=== PATIENT | male | born 1995 | race Caucasian/White ===

== ENCOUNTER 2025-05-14 17:29 | Emergency (ER) | payer SELFPAY ==
--- OUTSIDE RECORDS SUMMARY | 2023-07-24 09:36 | XMS_ITS | Continuity of Care Document ---
Author Organization [facility] Address [address] [facility] [place] [address] Phone Care Team Providers Care [place] Expert Name Role Phone Ronald Mcwilliams Unavailable Unavailab le Allergies, Adverse Reactions, Alerts Substance Reaction Status Criticality mold Nasal congestionAbdominal discomfort Acti ve No Information Medications Medication Instructions Dosage Effective Dates (start - stop) Status Comments omeprazole 20 mg capsule,delayed release take 1 capsule by oral route every day 30 minutes to 1 hour before a meal 20 MG - Active Singulair 10 mg tablet take 1 tablet by oral route every day in the evening as needed for allergy symptoms 10 MG - Active dicyclomine 20 mg tablet take 2 tablet by oral route 4 times every day 40 MG - Active trazodone 50 mg tablet take 1 tablet by oral route every day at bedtime as needed 50 MG - Active Fetzima 80 mg capsule,extended release take 1 capsule by oral route every day at approximately the same time each day 80 MG - Active Ritalin 10 mg tablet take 1 tablet by or al route 2 times every day 10 MG - Active Procedures Procedure Date Panoramic Film Extract; Erupted Th/exposted Rt 023 Extract; Erupted Th/exposted Rt 023 OFFICE/OUTPATIENT VISIT, EST ROUTINE VENIPUNCTURE OFFICE/OUTPATIENT VISIT, EST OFFICE/OUTPATIENT VISIT, EST Alcohol/drug screening OFFICE/OUTPATIENT VISIT, EST Feb-23-2023 Intraoral-complete Series (bw) Oral Hygiene Instruction Comp Oral Eval New/estab Patient 2022 Alcohol/drug screening ROUTINE VENIPUNCTURE OFFICE/OUTPATIENT VISIT, [facility] IMMUNIZATION ADMIN FLU VAC NO PRSV 4 HUY 3 YRS+ Advance Directives Directive Yes / No Effective Date File Name No Information Encounters Encounter Description Practice Location Reason(s) For Visit Diagnoses Date Provider Providers Copied on Encounter [facility], [address] [place] [address], [id number] , [place] tel:[phone] ECFS No Information 3 Justin Cardenas. [address] [place] [address], [id number], [place]. tel:[phone] [facility], [address] [place] [address], [id number] , [place] tel:[phone] Dental Clinic ext/con (chief complaint) Encounter for screening for dental disorders 3 Osmany Bryant. [address] [place] [address], [id number], [place]. tel:[phone] OFFICE/OUTPA TIENT VISIT, [facility], [address] [place] [address], [id number] , [place] tel:[phone] ECFS stomach issues (chief complaint) Body mass index [BMI] 25.0-25.9, adultAllergic rhinitis, unspecified seasonality, unspecified triggerGeneralize d abdominal pain 3 Justin Cardenas. [address] [place] [address], [id number], [place]. tel:[phone] OFFICE/OUTPA TIENT VISIT, [facility], [address] [place] [address], [id number] , [place] tel:[phone] [facility] f/u Abd pain (chief complaint) Body mass index [BMI] 25.0-25.9, adultIrritable bowel syndrome with diarrheaAllergic rhinitis, unspecified seasonality, unspecified trigger 3 Justin Cardenas. [address] [place], [place], [id number], [place]. tel:[phone] [facility], [address] [place] [address], [id number] , [place] tel: [phone] [facility] Generalized abdominal painUnintentional weight lossFrequent stools 3 Justin Cardenas. [address] [place], [place], [id number], [place]. [phone] [facility], [address] [place] [address], [id number] , [place] tel: [phone] [facility] Generalized abdominal painFrequent stoolsUnintention al weight loss 3 Justin Cardenas. [address] [place] [address], [id number], [place]. [phone] OFFICE/OUTPA TIENT VISIT, [facility], [address] [place] [address], [id number] , [place] tel: [phone] [facility] f/u abd pain (chief complaint) Urine ketonesBody mass index [BMI] 25.0-25.9, adultUnintentiona l weight lossGeneralized abdominal painSkin rashFrequent stools 3 Justin Cardenas. [address] [place] [address], [id number], [place]. [phone] OFFICE/OUTPA TIENT VISIT, [facility], [address] [place] [address], [id number] , [place] tel:[phone] [facility] F/U (chief complaint) Irritable bowel syndrome (chief complaint) Encounter for screening examination for other mental health and behavioral disordersBody mass index [BMI] 27.0-27.9, adultIrritable bowel syndrome with diarrhea 3 Justin Cardenas. [address] [place] [address], [id number], [place]. tel:[phone] [facility], [address] [place] [address], [id number] , [place] [phone] Dental Clinic DN (chief complaint) Encounter for screening for dental disorders 3 Bertrand Mcleod. . tel:[phone] OFFICE/OUTPA TIENT VISIT, EST [facility], [address] [place] [address], [id number] , [place] tel:[phone] [facility] Est Care (chief complaint) Dental (chief complaint) Abdominal pain (chief complaint) Encounter for screening examination for other mental health and behavioral disordersBody mass index [BMI] 27.0-27.9, adultGeneralized abdominal painFrequent stoolsNeed for dental careUnintentional weight loss 3 Justin Cardenas. [address] [place] [address], [id number], [place]. tel:[phone] [facility], [address] [place] [address], [id number] , [place] tel:[phone] [facility] No Information 7 Carmenza Samuel. [address] [place] [address], [id number], [place]. tel:[phone] Family History Family Member Type Diagnosis Age At Onset No Information Immunizations Vaccine Date Status Comments Influenza virus vaccine, injectable, quadrivalent, split virus, preservative free, 3 years or older Fluarix, Flulaval or Fluzone Quad administered Source: New Immuniza tion Record Payers Payer name Insurance type Covered alliance party ID Authoriza tion(s) D [employer] [facility] [id number] Medicaid Wrap - [facility] [place] [id number] Social History Type Description Quantity Date Captured Comments Alcohol Use Details Unknown Caffeine Use Details Unknown Tobacco Use Status No Information Smoking Status No Information Sex Male Sexual Orientation Straight or heterosexual Gender Identity Male Chief Complaint And Reason For Visit No Information Reason For Referral Reason For Referral No Information Plan Of Treatment Date Type Action Status Goal Hepatitis C screening. Due o n due Goal Unhealthy drug use screening . Due on due Goal RLP. Due on due Goal Tdap. Due on due Goal Depression screening. Due on due Goal Tdap Vaccine. Due on 2022 due Goal Hep A. Due on du e Goal PRAPARE ASSESSMENT. Due on due Goal Influenza vaccine. Due on due Goal Influenza vaccine. Due on due Goal RLP. Due on due Goal Depression screening. Due on due Goal Tdap Vaccine. Due on 2022 due Goal PRAPARE ASSESSMENT. Due on due Goal Tdap. Due on due Goal Tdap Vaccine. Due on 2022 due Goal Depression screening. Due on due Goal Influenza vaccine. Due on due Goal Tdap. Due on due Goal PRAPARE ASSESSMENT. Due on due Goal RLP. Due on due Goal Dietary management education , guidance, and counseling completed Goal Tdap Vaccine. Due on 2022 due Goal PRAPARE ASSESSMENT. Due on due Goal Influenza vaccine. Due on Wi due Goal Depression screening. Due on due Goal RLP. Due on due Goal Tdap. Due on due Goal Dietary management education , guidance, and counseling completed Goal Influenza vaccine. Due on Ap due Goal Tdap Vaccine. Due on 2022 due Goal Depression screening. Due on due Goal RLP. Due on due Goal PRAPARE ASSESSMENT. Due on A due Goal Hep A. Due on du e Goal Tdap. Due on due Goal Hep A. Due on du e Goal Tdap. Due on due Goal Tdap Vaccine. Due on 2022 due Goal RLP. Due on due Goal Influenza vaccine. Due on due Goal PRAPARE ASSESSMENT. Due on A due Goal Depression screening. Due on due Goal PRAPARE ASSESSMENT. Due on due Goal Depression screening. Due on due Goal RLP. Due on due Goal Tdap Vaccine. Due on 2022 due Goal Influenza vaccine. Due on Wi due Goal Tdap. Due on due Goal Dietary management education , guidance, and counseling completed Goal Dietary management education , guidance, and counseling completed Goal Tdap Vaccine. Due on 2022 due Goal RLP. Due on due Goal Influenza vaccine. Due on due Goal PRAPARE ASSESSMENT. Due on due Goal Tdap. Due on due Goal Depression screening. Due on due Goal Lifestyle education regardin g diet completed Goal Tdap Vaccine. Due on 2022 due Goal Tdap. Due on due Goal Depression screening. Due on due Goal Influenza vaccine. Due on due Goal RLP. Due on due Goal PRAPARE ASSESSMENT. Due on due Goal Hep A. Due on du e Goal Tdap Vaccine. Due on 2022 due Goal Tdap. Due on due Goal Depression screening. Due on due Goal RLP. Due on due Goal Influenza vaccine. Due on due Goal PRAPARE ASSESSMENT. Due on due Goal Lifestyle education regardin g diet completed Referral Ordered: Referrals: Gastroenterology. Evaluate and treat Appointment date/timeframe: 03/19/2023 ordered Referral Ordered: CT Pelvis W/Dye ordered Referral Ordered: CT Abdomen W/Dye ordered Referral Ordered: CT Abdomen W/O & W/Dye ordered Referral Ordered: Referrals: Dentistry. Evaluate and treat ordered History Of Present Illness Encounter Date Complaint History Of [place] nt Illness ext/con stomach issues Patient here for stomach issues. Patient hoses down steps with mold and it his messing with his allergies and then upsetting his stomach. Patient is requesting a note to not work in that area until issues is fix. No other issues at this time.Lesley Carrera. HPI reviewed and accurate. Ernesto CAHSLabs obtained from left anticub after one attempt.Lesley Carrera. f/u Abd pain Presents for f/u abd pain. States he has an appt with GI on 03/19/23. States he needs a refill on his Singulair and a note for work stating that he has stomach problems . Susan Kebede RNNotes continues to improve slightly on abdominal issues on dicyclomine and omeprazole, no longer experiencing reflux. Scheduled to follow up with stick inserter. Continues with poor dietary intake and weight loss, eats 1-2 meals per day. No supplementation for calories at home. Ernesto CASH f/u abd pain Presents for f/u abd pain. Pt reports abd pain x 4 days, denies vomiting, diarrhea. Was stared on Ritalin by psychiatry. Pt was given specimen containers for UA and stool specimen. Susan Kebede RNContinues with abdominal pain and nausea in despite use of dicyclomine, notes diarrhea has improved. Review of 05-17-2020 Dr. Escobedo EGD and colonoscopy noted normal EGD with biopsy, small internal hemorrhoids with biopsy on colonoscopy, biopsy results not available, continues to lose weight. Patient open to 2nd opinion with different stick inserter. Ernesto CASH F/U Patient is here for F/U on abdominal pain. Patient states the pain has remained the same. States the pain is a sharp pain both above and below the umbilicus. States OTC medications do not help the pain. Denies nausea or vomiting, does experience diarrhea at times. Patient notices red sauce exacerbates the abdominal pain, as well as acid reflux. Denies noticing any other differences. Denies any other concerns. Was placed on Fetzima [address] Guy for depression, struggles with anxiety. Vapes daily. Smokes marijuana.//Enoch SMALLS. Irritable bowel syndrome Onset: gradual. Patient description is bloating, cramping and flatulence. It occurs daily. The problem is with no change. Aggravated by -Food: certain foods. Relieving factors include defecation and not eating. Associated symptoms include abdominal pain, bloating, change in bowel habits, loose stools, stool urgency and weight loss. Pertinent negatives include abdominal distention, altered stool passage, change in stool caliber, fever, mucus in stool, nausea and vomiting. Additional information: diarrhea after stools with red sauce. Ernesto CASH MAGALIS BLANCAS Abdominal pain Onset: 2 Years. The severity of the problem is moderate. The problem has not changed. The symptoms are recurring. The location is midline, left upper quadrant and left lower quadrant. The quality of the pain is achy. These symptoms occur after meals. These symptoms do not occur after bowel movement, on urination, with recent antibiotic use and after recent foreign travel. Aggravating factors include food. The patient denies relieving factors. Associated symptoms include nausea and weight loss. Pertinent negatives include back pain, bloating, blood in stool, change in appetite, constipation, diarrhea, dizziness, dyspnea, fever, flank pain, heartburn, hematuria, rash and vomiting. Additional information: [place] CASH. Dental Scheduled Dental New on 09/28/2022//Pito Yip RN Est Care Pt is here to [facility]. Pt has been having stomach issues for the last two years. He states that starting 2 years ago anytime he would eat, he would vomit or have bowel movements with blood. He states the blood has cleared up but he is still having the issue with vomiting and having bowel movements after eating. Pt states he saw a GI doctor but is unsure who the doctor was. He states that they did do an EGD and a Colonoscopy at [facility] and both of those were normal. He states he has lost significant weight over the last year, stating he was in the 280s and last he checked he was in the 140s. Pt admits to intermittent abdominal pain. He states that the pain is more present when he eats and his stomach is full. Pt also admits to depression and goes [facility] [employer] [facility]. Pt vapes with nicotine daily and smokes marijuana daily. Pt denies alcohol use. //SIMIN JonesQ9- 10//SERINA Jones Functional Status Date Functional Assessmen t No Information Instructions Date Instruction Additional Infor mation 1. amylase and lipas e2. Will follow up as needed. Related to Generalized abdominal pain 1 Use plastic covers for pillows, mattresses, and box springs.2 Avoid overstuffed furniture and down-filled bedding or pillows.3 Remove stuffed animals from the bed.4 Avoid sleeping on a bottom bunk.5 Wash your bedding every week in hot water, hotter than 130 degrees F.6 Do not allow smoking in your house.7 Wear a mask and gloves when cleaning, vacuuming, or painting to limit dust and chemical exposure.8 Vacuum twice a week.9 FOLLOW UP: as OTC MEDICATIONS FLUTICASONE, LORATIDINE, CERTIRIZINE, FEXOFENADINE may be used for symptoms if not contraindicated.11 note provided to avoid work area with mold trigger. Related to Allergic rhinitis, unspecified seasonality, unspecified trigger Giving encouragement to exercise Related to Body mass index [BMI] 25.0-25.9, adult Dietary management e ducation, guidance, and counseling Related to Body mass index [BMI] 25.0-25.9, adult 1 Use plastic covers for pillows, mattresses, and box springs.2 Avoid overstuffed furniture and down-filled bedding or pillows.3 Remove stuffed animals from the bed.4 Avoid sleeping on a bottom bunk.5 Wash your bedding every week in hot water, hotter than 130 degrees F.6 Do not allow smoking in your house.7 Wear a mask and gloves when cleaning, vacuuming, or painting to limit dust and chemical exposure.8 Vacuum twice a week.9 FOLLOW UP: 6 [id number] START SINGULAIR Related to Allergic rhinitis, unspecified seasonality, unspecified trigger 1. Medications as pr escribed2. push fluids3. bland diet, progress as toleratedsupplement with protein shakes in between meals, do not use as a supplementation4. FOLLOW UP: 3 months- SOONER FOR WEIGHT LOSS BELOW 130LBSMUST KEEP APPT WITH GASTRO SPECIALIST5. ER for worsening of symptoms Related to Irritable bowel syndrome with diarrhea Giving encouragement to exercise Related to Body mass index [BMI] 25.0-25.9, adult Dietary management e ducation, guidance, and counseling Related to Body mass index [BMI] 25.0-25.9, adult 1. referral to gastr o placed If you have not been contacted per specialist office to which you referred to in 2 weeks please contact the [facility] at [phone] and advise triage nurse. Related to Generalized abdominal pain 1. Avoid nicotine an d caffeine2. Do not eat 2 hours prior to bedtime3. Avoid large meals4. Avoid spicy or greasy foods, avoid other foods which may cause reflux5. OMEPRAZOLE 20mg dailyDICYCLOMINE 40MG QID6. Mylanta, Maalox, or GILBERT as needed for immediate relief7. CT ABD/PELVIS ORDERED8. UA and fecal calprotectin pending FOLLOW UP: WILL DISCUSS AFTER CT ABD//PELVIS REVIEWED Related to Generalized abdominal pain 1. possible allergen , follow up with derm, call to schedule Related to Skin rash Dietary management e ducation, guidance, and counseling Related to Body mass index [BMI] 25.0-25.9, adult Giving encouragement to exercise Related to Body mass index [BMI] 25.0-25.9, adult Dietary management e ducation, guidance, and counseling Related to Body mass index [BMI] 25.0-25.9, adult Giving encouragement to exercise Related to Body mass index [BMI] 25.0-25.9, adult 1. dyccylomine as or dered2. avoid offending foods3. ER for fever or severe pain4. Follow up 1 month Related to Irritable bowel syndrome with diarrhea Lifestyle education regarding di et Related to Body mass index [BMI] 27.0-27.9, adult Giving encouragement to exercise Related to Body mass index [BMI] 27.0-27.9, adult 1. CBC, CMP, bowel d isorder cascade, thyroid screen, UA2. Records request [facility]3. smaller more frequent meals4. stop marijuana use5. Follow up 2 weeks Related to Generalized abdominal pain 1. Scheduled with dentist today. Related to Need for dental care Lifestyle education regarding di et Related to Body mass index [BMI] 27.0-27.9, adult Giving encouragement to exercise Related to Body mass index [BMI] 27.0-27.9, adult Assessments Type Assessment Date No Information Patient Care Teams Name Effective Dates (start - stop) Status Members No Information
[2025-05-14 17:36] VITALS: BP 122/75; PULSE 68; TEMP 36.9; O2SAT 98; BMI 32.9
--- NOTE | 2025-05-14 18:00 | CT_ITS ---
[facility] [place] [id number] Patient Name: ASHLEY BAJWA MRN: [id number] date: 1995 Sex: M Assigned Patient Location: ER Current Patient Location: ED.MAIN Accession/Order Number: [id number] Exam Date: 05/14/2025 18:34 Report Date: 05/14/2025 20:16 At the request of: KIRAN VÁSQUEZ Procedure: CT abdomen pelvis w con CT ABDOMEN AND PELVIS WITH INTRAVENOUS CONTRAST: CLINICAL HISTORY: LLQ pain, rectal bleeding COMPARISON: None TECHNIQUE: Spiral images were obtained through the abdomen and pelvis following the administration of intravenous contrast. This CT exam was performed using one or more following dose reduction techniques: Automated exposure control, adjustment of the mA and/or kV according to patient size, or use of iterative reconstruction technique. FINDINGS: Lung Bases: [No focal opacity] Organs:Liver, spleen, adrenals, kidneys, and pancreas are unremarkable. Gallbladder is contracted.[ GI: Mild retained stool throughout the colon. No bowel obstruction. Appendix unremarkable.[ Pelvis:[Bladder and prostate unremarkable. Tiny fat-containing left inguinal hernia.] Peritoneum/Retroperitoneum:Minimal degenerative changes L5-S1. No free air or free fluid. Aorta normal caliber.[ Abd wall/Bones:No suspicious osseous lesion[ CT/CT abdomen pelvis w con IMPRESSION: Negative acute inflammatory process or bowel obstruction Impression dictated by: Jerardo Zhou M.D. 05/14/2025 8:16 PM Dictation Location: [place] [address] Electronically authenticated by: [id number] Date: 05/14/2025 20:16
[2025-05-14 18:27] LABS: Hematocrit 42.3 % (42.0-54.0); Hemoglobin 14.4 g/dL (14.0-18.0); Immature Granulocytes Abs Auto 0.00 10^3/uL (0.00-0.03); Immature Granulocytes Pct Auto 0.0 % (0.0-0.5); Lymphocytes Absolute Auto 1.5 10^3/uL (1.2-3.8); Mean Corpuscular HGB Conc 34.0 g/dL (29.9-35.2); Mean Corpuscular Hemoglobin 30.4 pg (25.9-34.0); Mean Corpuscular Volume 89.2 fL (80.0-94.0); Platelet Count 182 10^3/uL (150-450); Red Blood Count 4.74 10^6/uL (4.70-6.10); White Blood Count 5.9 10^3/uL (4.0-11.0)
[2025-05-14 18:42] LABS: Alanine Aminotransferase 21 U/L (16-63); Albumin Globulin Ratio 1.1; Albumin Level 4.1 g/dL (3.4-5.0); Alkaline Phosphatase 77 U/L (46-116); Anion Gap 12.2; Aspartate Amino Transferase 13 U/L (15-37); Blood Urea Nitrogen 10.0 mg/dL (7.0-18.0); Calcium 9.2 mg/dL (8.5-10.1); Carbon Dioxide 28.4 mmol/L (21.0-32.0); Chloride 102 mmol/L (98-107); Estimated GFR (African America >60 (>=60 mL/min/1.73m^2); Estimated GFR (Non-African Ame >60 (>=60 mL/min/1.73m^2); Globulin 3.9 g/dL; Glucose 107 mg/dL (74-106); Potassium 3.6 mmol/L (3.5-5.1); Sodium 139 mmol/L (136-145); Total Protein 8.0 g/dL (6.4-8.2)
[2025-05-14 19:14] VITALS: BP 131/76; PULSE 63; O2SAT 97
--- NOTE | 2025-05-14 20:16 | ED_ITS ---
HPI HPI - General Adult General Chief complaint: GI Bleed Stated complaint: Rectal Bleeding Time Seen by Provider: 05/14/25 17:34 Source: patient Mode of arrival: walk-in History of Present Illness HPI narrative: 30-year-old male presents to the ED with bright red blood per rectum for the past 24 hours. He reports that his other bowel movements have been normal. He is experiencing left lower quadrant abdominal cramping and tenderness. He has had similar symptoms in the past and has undergone prior colonoscopy, which was reportedly normal. He denies fever, chills, nausea, vomiting, melena, dizziness, or lightheadedness. No recent travel, antibiotic use, or sick contacts. Related Data Previous Rx's ?Medication ?Instructions ?Recorded hydrocortisone-pramoxine 2.5 %-1 % 1 applic IN TID 7 d ays #30 grams 05/14/25 rectal cream (Analpram-HC) Allergies Allergy/AdvReac Type Severity Reaction Status Date / Time No Known Drug Allergies Allergy Verified 05/14/25 17:41 PFSH PFSH Social History Little interest or pleasure in doing things: not at all Feeling down, depressed, or hopeless: not at all Exam Narrative Exam Narrative: General: Alert, oriented, no acute distress. Vital Signs: BP 131/67, HR 63, RR 14, Temp 98.4 ?F, SpO? 97% RA. HEENT: Mucous membranes moist, no pallor noted. Cardiac: Regular rate and rhythm, no murmurs. Respiratory: Clear to auscultation bilaterally, normal effort. Abdomen: Soft, nondistended, tenderness to palpation LLQ, no rebound or guarding, no masses. Rectal: Chaperoned exam. Tender external hemorrhoid and fissure noted at approximately 11 o?clock position. No active bleeding. Fecal occult positive, likely from hemorrhoidal bleeding. Skin: Warm, well-perfused, no rash, no diaphoresis. Neuro: Alert and oriented ?3, no focal deficits. Constitutional Vital Signs, click to edit/add: Last Vital Signs Temp 98.4 F 05/14/25 17:36 Pulse 63 05/14/25 19:14 Resp 14 05/14/25 19:14 BP 131/76 05/14/25 19:14 Pulse Ox 97 05/14/25 19:14 O2 Del Method Room Air 05/14/25 19:14 Course Vital Signs Vital signs: Vital Signs Temperature 98.4 F 05/14/25 17:36 Pulse Rate 68 05/14/25 17:36 Respiratory Rate 18 05/14/25 17:36 Blood Pressure 122/75 05/14/25 17:36 Pulse Oximetry 98 05/14/25 17:36 Temperature 98.4 F 05/14/25 17:36 Pulse Rate 63 05/14/25 19:14 Respiratory Rate 14 05/14/25 19:14 Blood Pressure 131/76 05/14/25 19:14 Pulse Oximetry 97 05/14/25 19:14 Oxygen Delivery Method Room Air 05/14/25 19:14 Medical Decision Making MDM Narrative Medical decision making narrative: Patient is a 30-year-old male presenting with bright red rectal bleeding and left lower quadrant abdominal cramping. Exam notable for tender hemorrhoid and anal fissure, no active bleeding. He has a history of similar episodes with prior normal colonoscopies. Vital signs are stable and he is clinically well- appearing. Work-Up: * Labs: WBC 5.9, Hgb 14.4, Hct 42%, CMP unremarkable * Imaging: CT abdomen/pelvis ? negative for acute inflammatory process, obstruction, or other acute pathology * Rectal Exam: Tender external hemorrhoid and fissure at 11:00, no active bleeding; fecal occult positive Differential Diagnosis: * Hemorrhoids / Anal fissure ? most likely given tender external hemorrhoid and fissure, positive fecal occult, prior history * Diverticulosis / diverticulitis ? less likely; CT negative, no systemic symptoms * Colitis (infectious, IBD) ? less likely; no diarrhea, systemic symptoms, or CT findings * GI bleed from upper GI source ? unlikely; bright red blood per rectum without melena * Polyps or neoplasm ? low suspicion given prior normal colonoscopy, age <30 Assessment: Bright red rectal bleeding secondary to external hemorrhoid and anal fissure. Patient is hemodynamically stable with no evidence of acute intra-abdominal pathology or severe blood loss. Plan: * Conservative management with stool softeners, high-fiber diet, hydration, and sitz baths and analpram cream Rx * Symptomatic relief with topical therapy if needed * Close follow-up with primary care provider for re-evaluation and ongoing management * Return precautions for worsening bleeding, dizziness, syncope, or severe abdominal pain * * Medical Records Medical records reviewed: Yes I reviewed the patient's medical records Lab Data Lab results reviewed: Yes I reviewed the patient's lab results Labs: Lab Results 05/14/25 05/14/25 Range/Units 17:58 18:10 WBC 5.9 (4.0-11.0) 10^3/uL RBC 4.74 (4.70-6.10) 10^6/uL Hgb 14.4 (14.0-18.0) g/dL Hct 42.3 (42.0-54.0) % MCV 89.2 (80.0-94.0) fL MCH 30.4 (25.9-34.0) pg MCHC 34.0 (29.9-35.2) g/dL RDW 11.9 (11.0-15.0) % Plt Count 182 (150-450) 10^3/uL MPV 12.4 (9.5-13.5) fL Neut % (Auto) 63.4 (43.0-75.0) % Lymph % (Auto) 25.8 (20.5-60.0) % [place] % (Auto) 6.7 (1.7-12.0) % Eos % (Auto) 3.4 (0.9-7.0) % Baso % (Auto) 0.7 (0.2-2.0) % Neut # (Auto) 3.7 (1.4-6.5) 10^3/uL Lymph # (Auto) 1.5 (1.2-3.8) 10^3/uL [place] # (Auto) 0.4 (0.3-0.8) 10^3/uL Eos # (Auto) 0.2 (0.0-0.7) 10^3/uL Baso # (Auto) 0.0 (0.0-0.1) 10^3/uL Abs Immat Gran (auto) 0.00 (0.00-0.03) 10^3/uL Imm/Tot Granulo (auto) 0.0 (0.0-0.5) % Sodium 139 (136-145) mmol/L Potassium 3.6 (3.5-5.1) mmol/L Chloride 102 (98-107) mmol/L Carbon Dioxide 28.4 (21.0-32.0) mmol/L Anion Gap 12.2 BUN 10.0 (7.0-18.0) mg/dL Creatinine 0.88 (0.70-1.30) mg/dL Est GFR ( Amer) >60 (>=60 mL/min/1.73m^2) Est GFR (Non-Af Amer) >60 (>=60 mL/min/1.73m^2) BUN/Creatinine Ratio 11.4 Glucose 107 H (74-106) mg/dL Calcium 9.2 (8.5-10.1) mg/dL Total Bilirubin 0.4 (0.2-1.0) mg/dL AST 13 L (15-37) U/L ALT 21 (16-63) U/L Alkaline Phosphatase 77 (46-116) U/L Total Protein 8.0 (6.4-8.2) g/dL Albumin 4.1 (3.4-5.0) g/dL Globulin 3.9 g/dL Albumin/Globulin Ratio 1.1 Stool Occult Blood Positive A Imaging Data CT scan - abdomen: Attestation: I have reviewed the pertinent imaging results. Radiologist's impression: ITS Impressions Abdomen/Pelvis CT 05/14/25 18:00 IMPRESSION: Negative acute inflammatory process or bowel obstruction Impression dictated by: Jerardo Zhou M.D. 05/14/2025 8:16 PM Dictation Location: [place] [id number] Electronically authenticated by: [id number] Y Date: 05/14/2025 20:16 Discharge Plan Discharge Chief Complaint: GI Bleed Clinical Impression: Hemorrhoids, Anal fissure Patient Disposition: Home, Self-Care Time of Disposition Decision: 20:35 Condition: Good Prescriptions / Home Meds: New hydrocortisone-pramoxine [Analpram-HC] 2.5-1 % cream 1 applic IN TID 7 Days Qty: 30 0RF Print Language: Swedish Instructions: Rectal Bleeding (ED), Anal Fissure (ED) Additional Instructions: Reason for Visit: Rectal bleeding and abdominal pain What We Found: * Your exam and CT scan did not show any serious problems such as infection, blockage, or bleeding inside your intestines. * You do have a hemorrhoid and a small anal fissure (tear in the lining of the anus), which are likely causing the bleeding. * Your blood counts are normal, meaning you are not losing too much blood. What To Do At Home: * Take stool softeners as directed to keep stools soft and avoid straining. * Sitz baths (warm water baths for the bottom) 2?3 times per day can help with pain and healing. * Eat a high-fiber diet and drink plenty of fluids. * Avoid constipation by staying active and hydrated. Follow-Up: * Schedule a visit with your primary care provider within 1 week to recheck symptoms. When to Return to the ER: * If you have heavy bleeding (soaking the toilet, passing large clots) * If you feel lightheaded, dizzy, or faint * If you develop severe abdominal pain or vomiting * If symptoms are getting worse instead of better Referrals: Physician,Non-Staff, MD [Primary Care Provider] - 1 week
[2025-05-14 20:55] VITALS: BP 115/73; PULSE 59; TEMP 36.7; O2SAT 97
== END 2025-05-14 20:58 | disposition home or self-care (01) ==
PROVIDERS: Physician Assistant; Emergency Provider Emergency Medicine
DX: K64.4 Residual hemorrhoidal skin tags (principal); K60.2 Anal fissure, unspecified
CPT/HCPCS: 36415; 74177; 80053; 85025; 99285; G0328; Q9967